=== PATIENT | male | born 1955 | race Two or more races ===

== ENCOUNTER 2020-11-26 07:15 | Inpatient (IN) | payer OTHER ==
[~2020-11-26] VITALS: Ht 167.6 cm; Wt 78.9 kg
[2020-11-26] MEDS ORDERED: MICARDIS HCT 41 EACH PO (07:46)
[2020-11-26] MEDS ORDERED: VITAMIN B12 PO (07:46)
[2020-11-26] MEDS ORDERED: VITAMIN D PO (07:47)
[2020-12-09] MEDS ORDERED: VITAMIN D310 MC4 (08:22)
[2020-12-09] MEDS ORDERED: ZOLPIDEM TARTRA10 MG (08:22)
[2020-12-09] MEDS ORDERED: VITAMIN B-121000 MC4 (08:23)
== END 2020-12-11 10:04 | disposition home or self-care (01) | DRG 708 ==
LOC: SURG 12-09 05:47 → O/R 12-09 05:47 → SURG 12-09 07:00
PROVIDERS: ADMIT Urology; ATTEND Urology
PROC: 07BC0ZX Excision of Pelvis Lymphatic, Open Approach, Diagnostic (ICD-10-PCS; 2020-12-09)
PROC: 0TBC0ZX Excision of Bladder Neck, Open Approach, Diagnostic (ICD-10-PCS; 2020-12-09)
PROC: 0VT00ZZ Resection of Prostate, Open Approach (ICD-10-PCS; principal; 2020-12-09 07:00)
DX: C61 Malignant neoplasm of prostate (principal); I10 Essential (primary) hypertension

== ENCOUNTER → 2020-12-05 07:53 | Outpatient (CLI) | payer OTHER ==
[~2020-12-05 07:53] MED LIST: MICARDIS HCT 41 EACH PO; VITAMIN B-121000 MC4; VITAMIN B12 PO; VITAMIN D PO; VITAMIN D310 MC4; ZOLPIDEM TARTRA10 MG
== END | disposition home or self-care (01) ==
LOC: LAB 07:53
PROVIDERS: ATTEND Internal Medicine Cardiovascular Disease
DX: R05 Cough (principal); R06.2 Wheezing